=== PATIENT | female | born 1995 | race Hispanic/Latino ===

== ENCOUNTER → 2019-12-23 | Day surgery (SDC) | payer BC ==
[2019-12-20 11:52] LABS: BASOPHILS % 0.7 % (0.0-1.0); EOSINOPHILS # (AUTO) 0.1 (0.0-0.4); EOSINOPHILS % 2.3 % (0.0-6.0); HEMATOCRIT 38.2 % (34.2-44.1); HEMOGLOBIN 11.9 g/dL (12.0-16.0); LYMPHOCYTES # (AUTO) 1.4 (1.0-3.2); LYMPHOCYTES % 22.5 % (18.0-39.1); MEAN CORPUSCULAR HEMOGLOBIN 28.3 pg (28-32); MEAN CORPUSCULAR HGB CONC 31.2 g/dL (31-35); MONOCYTES # (AUTO) 0.5 (0.2-0.8); MONOCYTES % 7.5 % (4.4-11.3); NEUTROPHILS # (AUTO) 4.1 (2.1-6.9); NEUTROPHILS % 66.7 % (38.7-80.0); PLATELET COUNT 269 x10e3/uL (140-360); RED CELL DISTRIBUTION WIDTH 13.2 % (11.7-14.4)
[2019-12-20 12:12] LABS: ALANINE AMINOTRANSFERASE 14 IU/L (0-55); ALBUMIN 3.6 g/dL (3.5-5.0); ALBUMIN/GLOBULIN RATIO 1.1 (0.8-2.0); ALKALINE PHOSPHATASE 75 IU/L (40-150); ANION GAP 9.6 mmol/L (8-16); BLOOD UREA NITROGEN 13 mg/dL (7-26); BUN/CREATININE RATIO 17 (6-25); CALCIUM 8.4 mg/dL (8.4-10.2); CARBON DIOXIDE 28 mmol/L (22-29); CHLORIDE 107 mmol/L (98-107); CREATININE, SERUM 0.78 mg/dL (0.57-1.11); EST GLOMERULAR FILTRATION RATE > 60 ML/MIN (60-); GLUCOSE 92 mg/dL (74-118); POTASSIUM 3.6 mmol/L (3.5-5.1); SODIUM 141 mmol/L (136-145)
[~2019-12-23] MED LIST: BUPIVACAINE 0.25% 30ML SDV ONE; FENTANYL CITRATE/PF 100MCG/2 ML INJ ONE; MIDAZOLAM HCL 2 MG/2 ML VIAL ONE
--- NOTE | 2019-12-23 11:00 | Operative Report ---
DATE OF PROCEDURE: 12/23/2019 SURGEON: Barron Moy MD PREOPERATIVE DIAGNOSIS: Chronic cholecystitis, acalculous. POSTOPERATIVE DIAGNOSIS: Chronic calculous cholecystitis. PROCEDURE PERFORMED: Laparoscopic cholecystectomy. TOW MOTOR DRIVER: NILSA Barnett. ESTIMATED BLOOD LOSS: Minimal. DRAINS: None. COMPLICATIONS: None. INDICATION AND FINDINGS: A 24-year-old female complained of several month history of right upper quadrant pain radiated to the back. She had an ultrasound that revealed diffusely thickened gallbladder wall. Some gravel. No stones. INTRAOPERATIVE FINDINGS: Thickened gallbladder wall and a 1 cm stone in the fundus of the gallbladder. There was no ductal dilatation. There were some adhesions of the peritoneum undersurface of the liver. All of this is consistent with chronic calculous cholecystitis. DESCRIPTION OF PROCEDURE: With the patient lying on the operative table in the supine position after administration of general anesthesia, she was prepped and draped for laparoscopic cholecystectomy. Pneumoperitoneum was insufflated to 15 mm of pressure in the umbilical site and then after the saline drop test was performed, the 10/11 trocar was placed and the camera introduced. Under direct vision with the camera, we placed 10/11 trocar also in the subxiphoid region and two lateral working ports right midclavicular line and right anterior axillary lines using 5 mm trocar sites. The gallbladder was then identified and it appeared to be chronically inflamed. We lysed some adhesions of the omentum to the gallbladder and the undersurface of the liver. At this point, we retracted the gallbladder cephalad and then the fundus and the neck laterally and inferiorly and began the dissection exposing the cystic duct. The junction with the common bile duct was seen 360 degrees circumferentially. We also identified the cystic artery and then we transected those two structures between titanium clips after we had identified the common bile duct and the common hepatic duct. After we did that, we took the gallbladder down from the liver bed using electrocautery dissection until we detached the gallbladder. We then extracted the gallbladder through the umbilical port and then we reinspected the operative field. There was no bile leak, no bleeding, no apparent bowel injury. We irrigated the right upper quadrant and gallbladder bed fossa until the effluent was clear. Then, we released the pneumoperitoneum and closed the wounds using 0-Vicryl for the umbilical fascia, 3-0 Vicryl for the subcutaneous tissue in that location as well as the subxiphoid port and then the skin of all the ports was closed using cecy. A 0.25% Marcaine with epinephrine was given as local block at the end of the case. The patient tolerated the procedure well, was taken to recovery room in stable condition. MD JOSE Rasheed/HARPER /[id number]
[2019-12-23 11:15] VITALS: BP 127/83
== END | disposition home or self-care (01) ==
LOC: OR 06:34
PROVIDERS: ATTEND Surgery
DX: K80.10 Calculus of gallbladder with chronic cholecystitis without obstruction (principal); E66.3 Overweight; Z01.812 Encounter for preprocedural laboratory examination; Z20.828 Contact with and (suspected) exposure to other viral communicable diseases; Z68.32 Body mass index [BMI] 32.0-32.9, adult
CPT/HCPCS: 36415 ×2; 47562; 80053; 84702; 85025; 88304; C1766; J2250; J3010; U0002